=== PATIENT | male | born 1965 | race Caucasian/White ===

== ENCOUNTER 2018-01-17 13:34 | Emergency (ER) | payer OTHER ==
[~2018-01-17] VITALS: Ht 182.9 cm; Wt 97.0 kg
[2018-01-17 13:43] VITALS: BP 143/91
[2018-01-17] MEDS ORDERED: LIDOCAINE-MPF 1%, 5ML INFIL ONE (14:00)
== END 2018-01-17 15:22 | disposition home or self-care (01) ==
LOC: ED 14:00
DX: S01.112A Laceration without foreign body of left eyelid and periocular area, initial encounter (principal); X58.XXXA Exposure to other specified factors, initial encounter; Y93.89 Activity, other specified; Y92.009 Unspecified place in unspecified non-institutional (private) residence as the place of occurrence of the external cause; Y99.8 Other external cause status
CPT/HCPCS: 12011; 99283